=== PATIENT | male | born 1960 | race African-American/Black ===

== ENCOUNTER 2017-11-12 22:13 | Emergency (ER) | payer OTHER ==
--- NOTE | 2017-11-12 22:18 | ED UPPER/LOWER EXTREMITY COMPL ---
History of Present Illness General Chief Complaint: Laceration Procedure Stated Complaint: L HAND LAC Source: patient Exam Limitations: no limitations Vital Signs & Intake/Output Vital Signs & Intake/Output Vital Signs Date Time Temp Pulse Resp B/P B/P Pulse O2 O2 Flow FiO2 Mean Ox Delivery Rate 11/129 96.9 132 20 136/63 98 Allergies Coded Allergies: No Known Allergies (11/12/17) Triage Note: PER PT LAC TO L THUMB BASE ON GLASS UNKNOWN TETANUS Triage Nurses Notes Reviewed? yes Onset: Just prior to arrival Duration: hour(s): (1) Timing: remote history Severity: moderate Severity Numbers: 5 Pain/Injury Location: Left: Hand. Method of Injury: laceration No Modifying Factors: none HPI: Patient is a 56-year-old male presenting to the emergency department with chief complaint of laceration to left, happened just prior to arrival. Patient reports that he was cleaning a coffee pot and it cracked and broke on his left hand. Pain is currently moderate. Worse with movement. Denies numbness or tingling. Unsure of tetanus immunization. Denies any nausea vomiting fever chills chest pain shortness of breath. Due to the severity of the laceration patient decided to come in for evaluation. No numbness or tingling. (Charity Aguayo) Past History Travel History Traveled to [place] past 21 day No Medical History Any Pertinent Medical History? see below for history Neurological: NONE EENT: NONE Cardiovascular: NONE Respiratory: NONE Gastrointestinal: NONE Hepatic: NONE Renal: NONE Musculoskeletal: NONE Psychiatric: NONE Endocrine: NONE Surgical History Surgical History: non-contributory Psychosocial History What is your primary language Welsh Tobacco Use: Never used Family History Hx Contributory? No (Charity Aguayo) Review of Systems Review of Systems Constitutional: Reports: no symptoms. Comments Review of systems: See HPI, All other systems negative. Constitutional, no chills fever or weight loss HEENT: No visual changes no sore throat no congestion Cardiovascular: No chest pain Skin, no jaundice no rashes Respiratory: No dyspnea cough GI: No nausea no vomiting Muscle skeletal: no back pain, no neck pain, Neurologic: No numbness Psych: No stress anxiety Immunology: No splenectomy or history of AIDS (Charity Aguayo) Physical Exam Physical Exam General Appearance: well developed/nourished, no apparent distress, alert, awake , comfortable Comments: Well-developed well-nourished person in no acute distress HEENT: Atraumatic, normocephalic Neck: Normal inspection Cardiovascular: Radial pulses are 2+ bilaterally. Respiratory:No respiratory distress. Extremity: No edema, full range of motion of the digits and hand of the left upper extremity. Radial pulses are 2+ bilaterally. No signs of tendon involvement. 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 Neuro: Alert oriented x3, motor sensory normal Skin: Subcutaneous, flap-like laceration well approximating noted on the palmar aspect of the left hand, no active bleeding. Nontender to palpation. No visualized foreign bodies. No surrounding erythema or edema. Psych: Mood and affect is normal, memory and judgment is normal. (Andrew TOVAR,Charity) Progress Differential Diagnosis: sprain, tendon injury, LACERATION, ABRASION, CONTUSION Plan of Care: Orders Procedure Date/time Status XRY-HAND, 3 View LEFT 11/12 2223 Active Diagnostic Imaging: Viewed by Me: Radiology Read. Discussed w/RAD: Radiology Read. Radiology Impression: PATIENT: FLORES UMAÑA PRESENT AGE: 56 PATIENT ACCOUNT NO: [id number] : 62 LOCATION: [facility] ORDERING PHYSICIAN: Charity TOVAR SERVICE DATE: 11/12/17 EXAM TYPE: RAD - XRY-HAND, LEFT EXAMINATION: XR HAND, LEFT CLINICAL INFORMATION: Injury with glass. COMPARISON: None TECHNIQUE: Four views of the left hand. FINDINGS: There is soft tissue irregularity/laceration on the palmar aspect of the proximal hand. No definite radiopaque foreign body is identified in this region. Second through 5th fingers are flexed, with arthritic changes. Arthritic changes in the 1st MCP joint as well. No acute fractures are seen. 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 IMPRESSION: Soft tissue irregularity/laceration on the palmar aspect of the proximal hand. No definite radiopaque foreign body is identified in this region. DICTATED BY: Masood Jack MD DATE/TIME DICTATED:11/12/172258 CALL CENTER DISPATCHER:KAMI DATE/TIME TRANSCRIBED:2258 CONFIDENTIAL, DO NOT COPY WITHOUT APPROPRIATE AUTHORIZATION. < Electronically signed in Other Vendor System> SIGNED BY: Masood Jack MD 11/12/17 [id number] (Charity Aguayo) Departure Departure Time of Disposition: 2320 Disposition: HOME OR SELF CARE Condition: Stable Clinical Impression Primary Impression: Laceration Referrals: Patient Has No Primary Care Dr Additional Instructions: Return to the emergency department in 7-10 days for suture removal. Keep area clean and dry. Take [id number] Motrin and Tylenol instructed for any aches or pains. Return sooner if he develop any increased pain discharge fevers worsening symptoms or concerns. Departure Forms: Customer Survey General Discharge Information (Charity Aguayo) PA/FLIGHT OPERATION COORDINATOR Co-Sign Statement Statement: ED Attending supervision documentation- [] I saw and evaluated the patient. I have also reviewed all the pertinent lab results and diagnostic results. I agree with the findings and the plan of care as documented in the PA's/FLIGHT OPERATION COORDINATOR's documentation. [x] I have reviewed the ED Record and agree with the PA's/FLIGHT OPERATION COORDINATOR's documentation. [] Additions or exceptions (if any) to the PAs/FLIGHT OPERATION COORDINATOR's note and plan are summarized below: [] (Wilber LOPEZ,Aleks [place]) Procedures Laceration/Wound Repair Laceration/Wound Repair: Wound Location: upper extremity Wound's Depth, Shape: linear, subcutaneous Wound Length (cm): 5 Wound Explored: clean, no foreign body removed, irrigated extensively Irrigated w/ Saline (ccs): 500 Betadine Prep? Yes Anesthesia: 1% lidocaine Volume Anesthetic (ccs): 8 Wound Debrided: minimal Wound Repaired With: sutures Suture Size/Type: 5:0, nylon Number of Sutures: 15 Date of Last Tetanus: 11/12/17 Tetanus Status: up to date Progress: Tolerated procedure well. (Charity Aguayo)
[2017-11-12 22:19] VITALS: BP 136/63
--- NOTE | 2017-11-12 23:15 | RADIOLOGY REPORT ---
EXAMINATION: XR HAND, LEFT CLINICAL INFORMATION: Injury with glass. COMPARISON: None TECHNIQUE: Four views of the left hand. FINDINGS: There is soft tissue irregularity/laceration on the palmar aspect of the proximal hand. No definite radiopaque foreign body is identified in this region. Second through 5th fingers are flexed, with arthritic changes. Arthritic changes in the 1st MCP joint as well. No acute fractures are seen. 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 IMPRESSION: Soft tissue irregularity/laceration on the palmar aspect of the proximal hand. No definite radiopaque foreign body is identified in this region.
== END 2017-11-12 23:34 ==
LOC: ERH 22:13
DX: S61.012A Laceration without foreign body of left thumb without damage to nail, initial encounter (principal); W25.XXXA Contact with sharp glass, initial encounter; Y93.G1 Activity, food preparation and clean up; Y93.9 Activity, unspecified
CPT/HCPCS: 73130-LT; 90471; 90714

== ENCOUNTER 2017-11-21 12:00 | Emergency (ER) | payer OTHER ==
[~2017-11-21] VITALS: Ht 188 cm; Wt 127.0 kg
[2017-11-21 12:32] VITALS: BP 134/84
--- NOTE | 2017-11-21 13:41 | ED ANIMAL BITE/WOUND CHECK ---
History of Present Illness General Chief Complaint: Suture Removal/Wound Recheck Stated Complaint: WD CHECK Source: patient Exam Limitations: no limitations Vital Signs & Intake/Output Vital Signs & Intake/Output Vital Signs Date Time Temp Pulse Resp B/P B/P Pulse O2 O2 Flow FiO2 Mean Ox Delivery Rate 03 1232 98.6 90 18 134/84 98 Room Air Allergies Coded Allergies: No Known Allergies (11/12/17) Triage Note: 56 YO MALE TO [facility] FOR SUTURE REMOVAL (15 SUTURES) FROM L HAND. PLACED LAST TUESDAY. Triage Nurses Notes Reviewed? yes Onset: Abrupt Duration: day(s): (10), constant Timing: recent history Injury Environment: home HPI: 56-year-old male comes into emergency room for suture removal to left hand. All sutures in left him. Denies any redness, discharge fever chills. Denies any associated symptoms. Denies any pain. (Clive Wiley) Past History Travel History Traveled to [place] past 21 day No Medical History Any Pertinent Medical History? see below for history Neurological: NONE EENT: NONE Cardiovascular: NONE Respiratory: NONE Gastrointestinal: NONE Hepatic: NONE Renal: NONE Musculoskeletal: NONE Psychiatric: NONE Endocrine: NONE Tetanus Vaccine: 11/12/17 Surgical History Surgical History: non-contributory Psychosocial History What is your primary language Japanese Tobacco Use: Never used Family History Hx Contributory? No (Clive Wiley) Review of Systems Review of Systems Constitutional: Reports: no symptoms. EENTM: Reports: no symptoms. Respiratory: Reports: no symptoms. Cardiovascular: Reports: no symptoms. GI: Reports: no symptoms. Genitourinary: Reports: no symptoms. Musculoskeletal: Reports: no symptoms. Skin: Reports: see HPI. Neurological/Psychological: Reports: no symptoms. Hematologic/Endocrine: Reports: no symptoms. Immunologic/Allergic: Reports: no symptoms. All Other Systems: Reviewed and Negative (Clive Wiley) Physical Exam Physical Exam General Appearance: well developed/nourished, mild distress Head: atraumatic Eyes: Bilateral: normal appearance. Ears, Nose, Throat: normal ENT inspection, hearing grossly normal Neck: normal inspection Respiratory: no respiratory distress Cardiovascular: regular rate/rhythm Back: normal inspection Extremities: multiple sutures to left hand, no erythema, no warmth, no discharge , pulses intact, sensation intact, Neurologic/Psych: awake, alert, oriented x 3, normal mood/affect Skin: intact, normal color, warm/dry (Clive Wiley) Progress Differential Diagnosis: abscess, cellulitis, joint infection, tenosysnovitis Plan of Care: 11/21/2017 4:16:07 PM All sutures removed. Patient looks well. In no apparent distress. (Clive Wiley) Departure Departure Disposition: HOME OR SELF CARE Condition: Stable Clinical Impression Primary Impression: Visit for suture removal Referrals: Maria C Carty APRN (PCP/Family) Additional Instructions: Keep covered with bacitracin and dry dressing. Return if any concerns worsening symptoms. Please go over all results of today's visit with your primary care doctor. Contact your primary care doctor to let them know you were here in the emergency room. There may be nonspecific findings which may not be related to your visit today here in the emergency room but may require further evaluation and chronic monitoring by your primary care doctor. If you had a laceration today the chance of foreign body always remains. You should follow-up with your primary care doctor for recheck in 3-5 days for a wound check. If you had an x-ray done there is a chance that a fracture could have been missed on initial read and you should follow-up with your primary care doctor for repeat x-rays if symptoms persist. If your blood pressure was elevated here in the emergency room please have rechecked by [facility] primary care doctor within the next 48. If you were prescribed a narcotic here in the emergency room or any type of controlled substances you're not allowed to drive while taking this medication or operate any type of heavy machinery. Narcotics can make you feel lightheaded dizziness nausea and can cause constipation. You may need to machine operator hop picker a stool softener. Thank you for choosing [facility] emergency room. Please return to the emergency room immediately if you have any other concerns worsening of symptoms. Departure Forms: Customer Survey General Discharge Information (Clive Wiley) PA/WAFER PRODUCTION WORKER Co-Sign Statement Statement: ED Attending supervision documentation- I saw and evaluated the patient. I have also reviewed all the pertinent lab results and diagnostic results. I agree with the findings and the plan of care as documented in the PA's/WAFER PRODUCTION WORKER's documentation. x I have reviewed the ED Record and agree with the PA's/WAFER PRODUCTION WORKER's documentation. [] Additions or exceptions (if any) to the PAs/WAFER PRODUCTION WORKER's note and plan are summarized below: [] (Mila LOPEZ,Nikolas)
== END 2017-11-21 13:49 ==
LOC: ERH 12:00
DX: Z48.02 Encounter for removal of sutures (principal)